=== PATIENT | male | born 1985 | race American Indian/Alaskan Native ===

== ENCOUNTER 2017-01-21 15:01 | Emergency (ER) | payer SELFPAY ==
[2017-01-21] MEDS ORDERED: BOOSTRIX IM ONE (20:44)
[2017-01-21] MEDS ORDERED: TORADOL IM ONE (20:44)
[2017-01-21] MEDS ORDERED: TORADOL ONE (20:51)
[2017-01-21] MEDS ORDERED: TRIPLE ANTIBIOTIC TP ONE (21:01)
--- NOTE | 2017-01-21 21:04 | Emergency Department Report ---
- General Chief Complaint: Laceration/Recheck/Suture Stated Complaint: DOG BITE Source: patient Mode of arrival: Ambulatory Limitations: No Limitations - History of Present Illness Initial Comments: 31 y/o M presents s/p 5 puncture wounds from two dogs-of his right hand that occurred about 6 hours ago. Pt states that the dog's were his dogs and they were fighting with one another and he came in between to stop them and the dogs bit him on his right hand. Pt states that his dog's are uptodate on all vaccines and states that he is uptodate with his vaccines as well. Pt is unsure when his last tetanus shot was. Pt states that he has 10/10 in severity pain at this time, he has not taken anything for the pain at this time. Pt states that the pain increases with movement. pt denies any fever, chills, pus, oozing , or drainage at the site. No numbness or tingling. No headache, chest pain, or SOB. NKDA. -: hour(s) (6) Location: other (right hand) Extremity Location: Right: Hand Place: home Patient Tetanus UTD: No (pt is unsure) Context: accidental Associated Symptoms: pain. denies: loss of feeling/numbness, suspect foreign body present, unable to move injured part, weakness followed by dizziness, nausea/vomiting, fever Treatments Prior to Arrival: other (nothing has been tried) - Related Data Previous Rx's Medication Instructions Recorded Last Taken Type Ibuprofen [Motrin] 800 mg PO TID PRN #20 tablet 02/09/13 Unknown Rx Methocarbamol [Robaxin] 750 mg PO BID #20 tab 02/14/13 Unknown Rx Acetaminophen/Codeine [Tylenol 1 tab PO Q6H PRN #20 tab 01/21/17 Unknown Rx /Codeine # 3 tab] Amoxicillin/K Clav Tab [Augmentin 1 tab PO Q12HR #20 tab 01/21/17 Unknown Rx 875 mg] Mupirocin [Bactroban 2% OINT] 1 applic TP TID #1 tube 01/21/17 Unknown Rx Allergies Allergy/AdvReac Type Severity Reaction Status Date / Time No Known Allergies Allergy Verified 01/21/17 15:39 ED Review of Systems ROS: Stated complaint: DOG BITE Other details as noted in HPI Constitutional: denies: chills, fever Eyes: as per HPI ENT: denies: ear pain, throat pain Respiratory: denies: cough, shortness of breath, wheezing Cardiovascular: denies: chest pain, palpitations Endocrine: no symptoms reported Gastrointestinal: denies: abdominal pain, nausea, diarrhea Genitourinary: denies: urgency, dysuria Musculoskeletal: other (reports to right hand pain, swelling, and mild bleeding at the site, no numbness or tingling) Skin: other (reports to puncture wounds/laceration ) Neurological: denies: headache, weakness, paresthesias Psychiatric: denies: anxiety, depression ED Past Medical Hx - Past Medical History Previous Medical History?: No - Surgical History Past Surgical History?: No - Social History Smoking Status: Former Smoker Substance Use Type: None - Medications Home Medications: Home Medications Medication Instructions Recorded Confirmed Last Taken Type Ibuprofen [Motrin] 800 mg PO TID PRN #20 tablet 02/09/13 Unknown Rx Methocarbamol [Robaxin] 750 mg PO BID #20 tab 02/14/13 Unknown Rx Acetaminophen/Codeine [Tylenol 1 tab PO Q6H PRN #20 tab 01/21/17 Unknown Rx /Codeine # 3 tab] Amoxicillin/K Clav Tab [Augmentin 1 tab PO Q12HR #20 tab 01/21/17 Unknown Rx 875 mg] Mupirocin [Bactroban 2% OINT] 1 applic TP TID #1 tube 01/21/17 Unknown Rx ED Physical Exam - General Limitations: No Limitations General appearance: alert, in no apparent distress - Head Head exam: Present: atraumatic, normocephalic - Eye Eye exam: Present: normal appearance - ENT ENT exam: Present: mucous membranes moist - Neck Neck exam: Present: normal inspection - Respiratory Respiratory exam: Present: normal lung sounds bilaterally. Absent: respiratory distress - Cardiovascular Cardiovascular Exam: Present: regular rate, normal rhythm. Absent: systolic murmur, diastolic murmur, rubs, gallop - Extremities Exam Extremities exam: Present: other (there were five puncture wounds noted on the right hand, one about 0.5 in noted on the pointer finger, there are two smaller superficial puncutres noted on the 2nd digit, none on the ring finger, and then 2 more on the pinky -fifth digit--- no foreign bodies were visualized. pt is able to move all digits, opposition is normal, strength is normal, pulses are normal, sensation is intact, no signs of neurovascualr compromise) - Expanded Upper Extremity Exam Right General: Present: laceration, abrasion Shoulder Exam: Present: normal inspection, full ROM Upper Arm exam: Present: normal inspection, full ROM Elbow exam: Present: normal inspection, full ROM Forearm Wrist exam: Present: normal inspection, full ROM Hand Wrist exam: Present: full ROM, tenderness (noted at the sites of the puncture wounds), swelling, laceration (2 puncutre wounds noted), other (there is no evidence of tendon injury or rupture). Absent: deformity, erythema Hand L/R Front: 1 - Positive: laceration, abrasion. Negative: normal inspection, nail injury ( #), foreign body, amputation, avulsion 2 - Positive: laceration (superficial), abrasion. Negative: other, normal inspection, nail injury (#), foreign body, amputation, avulsion 3 - Positive: laceration, abrasion. Negative: other, normal inspection, nail injury (#), foreign body, amputation, avulsion 4 - Positive: laceration, abrasion. Negative: other, normal inspection, nail injury (#), foreign body, amputation, avulsion 5 - Positive: laceration, abrasion. Negative: other, normal inspection, nail injury (#), foreign body, amputation, avulsion Neuro motor exam: Present: wrist extension intact, thumb opposition intact, thumb IP flexion intact, thumb adduction intact, fingers 2-5 abduction intact Vascular: Present: normal capillary refill - Neurological Exam Neurological exam: Present: alert, oriented X3, CN II-XII intact, normal gait - Psychiatric Psychiatric exam: Present: normal affect, normal mood - Skin Skin exam: Present: other (there were 5 puncture wounds noted on the R hand) ED Course Vital Signs 01/21/17 01/21/17 01/21/17 15:40 21:00 22:26 Temperature 98.4 F Pulse Rate 95 H 64 Respiratory 18 18 18 Rate Blood Pressure 109/63 Blood Pressure 110/76 [Left] O2 Sat by Pulse 96 99 Oximetry ED Medical Decision Making - Radiology Data Radiology results: image reviewed XR: Right hand- soft tissue swelling is seen without evidence of a radiopaque foreign body. no fracture or dislocation is seen. - Medical Decision Making Pt was unsure when his last tetanus shot was updated, therefore, I have updated it here today. Pt was given Toradol 30 mg for the pain at this time in the ED. I have conducted a hand xray to rule out foreign body, which was unremarkable. Pt states that both him and his dogs were uptodate with all vaccines. Area was cleaned with copious water and mild soap here in the ED, neosporin cream was applied, and the area was wrapped with sterile gauze. Pt will be discharged from the ED is tylenol with codeine, augmentin, and mupirocin cream. Pt was discharged in stable condition with no signs of resp distress, no SOB, and is alert and oriented. No toxic apperance.Hemodynamically and neurovascualrly intact. Referrals for PCP provided. Please note: I have not sutured the area as the infection rate increases with closing up an animal bite. Critical care attestation.: If time is entered above; I have spent that time in minutes in the direct care of this critically ill patient, excluding procedure time. ED Disposition Clinical Impression: Puncture wound Dog bite Qualifiers: Encounter type: initial encounter Qualified Code(s): W54.0XXA - Bitten by dog, initial encounter Disposition: DC-01 TO HOME OR SELFCARE Is pt being admited?: No Does the pt Need Aspirin: No Condition: Stable Instructions: Animal Bite (ED), Puncture Wound (ED) Additional Instructions: Please complete your full course of antibiotic as directed to you today. Please do not take the tylenol with codeine while drivign or operating heavy machinery as it can make you drowsy. Please follow-up with PCP within 3-5 days. Please return to the ED immediately with any acute worsening of symptoms: such as fever , pus, redness, swelling, or increased pain. Prescriptions: Acetaminophen/Codeine [Tylenol /Codeine # 3 tab] 1 tab PO Q6H PRN #20 tab PRN Reason: pain Amoxicillin/K Clav Tab [Augmentin 875 mg] 1 tab PO Q12HR #20 tab Mupirocin [Bactroban 2% OINT] 1 applic TP TID #1 tube Referrals: PRIMARY CARE, [Primary Care Provider] - 3-5 Days [facility] [Outside] - 3-5 Days [facility] [Outside] - 3-5 Days Forms: Work/School Release Form(ED)
--- NOTE | 2017-01-21 22:02 | XRay Report ---
FINAL REPORT PROCEDURE: XR HAND 3+V RT TECHNIQUE: Three views of the right hand are obtained HISTORY: foreign body RIGHT HAND PAIN COMPARISON: No prior studies are available for comparison. FINDINGS: Soft tissue swelling is seen without evidence of a radiopaque foreign body. No fracture or dislocation is seen. IMPRESSION: No radiopaque foreign body is seen.
[2017-01-21 22:27] VITALS: BP 110/76
== END 2017-01-21 22:27 | disposition home or self-care (01) ==
LOC: ED 15:01
DX: S61.431A Puncture wound without foreign body of right hand, initial encounter (principal); Z87.891 Personal history of nicotine dependence; W54.0XXA Bitten by dog, initial encounter; Y93.89 Activity, other specified; Y92.89 Other specified places as the place of occurrence of the external cause; Y99.8 Other external cause status
CPT/HCPCS: 73130; 90471; 90715; 96372; 99283; J1885; A6250

== ENCOUNTER 2017-01-26 16:11 | Emergency (ER) | payer SELFPAY ==
[2017-01-26 16:56] LABS: Eosinophils % (Auto) 1.6 % (0.0-4.3); Hematocrit 45.7 % (35.5-45.6); Hemoglobin 15.5 gm/dl (11.8-15.2); Mean Corpuscular HGB Conc 34 % (32-34); Mean Corpuscular Hemoglobin 30 pg (28-32); Mean Corpuscular Volume 89 fl (84-94); Platelet Count 214 K/mm3 (140-440); Red Blood Count 5.17 M/mm3 (3.65-5.03); White Blood Count 5.1 K/mm3 (4.5-11.0)
[2017-01-26 17:01] LABS: Anion Gap 19 mmol/L; BUN/Creatinine Ratio 10; Blood Urea Nitrogen 8 mg/dL (9-20); Calcium 9.2 mg/dL (8.4-10.2); Carbon Dioxide 26 mmol/L (22-30); Chloride 100.9 mmol/L (98-107); Glucose 97 mg/dL (75-100); Potassium 4.6 mmol/L (3.6-5.0); Sodium 141 mmol/L (137-145)
[2017-01-26 17:02] LABS: Basophils % (Auto) 0.7 % (0.0-1.8)
--- NOTE | 2017-01-26 20:14 | Emergency Department Report ---
ED Recheck HPI - General Chief Complaint: Animal Bite Stated Complaint: NEEDS STITCHES Time Seen by Provider: 01/26/17 19:21 Source: patient Mode of arrival: Ambulatory Limitations: No Limitations - History of Present Illness Initial Comments: 31-year-old male past medical history none presents for wound check status post dog bite to right hand approximately 5 days ago. Patient states that his own dog bit his right hand it was a pitbull and he received treatment in the ER approximately 5 days ago presents for wound check right hand. Denies nausea vomiting fever or chills denies any significant pus drainage from hand. States he is currently on a course of Augmentin was given tetanus and knows that his dogs been fully vaccinated against rabies. Has pedigree information for his animals. MD Complaint: wound re-check Onset/Timin -: days(s) Initial Visit For: laceration, animal bite Returns Today for: wound recheck Context: planned re-check Associated Symptoms: none - Related Data Previous Rx's Medication Instructions Recorded Last Taken Type Ibuprofen [Motrin] 800 mg PO TID PRN #20 tablet 02/09/13 Unknown Rx Methocarbamol [Robaxin] 750 mg PO BID #20 tab 02/14/13 Unknown Rx Acetaminophen/Codeine [Tylenol 1 tab PO Q6H PRN #20 tab 01/21/17 Unknown Rx /Codeine # 3 tab] Amoxicillin/K Clav Tab [Augmentin 1 tab PO Q12HR #20 tab 01/21/17 Unknown Rx 875 mg] Mupirocin [Bactroban 2% OINT] 1 applic TP TID #1 tube 01/21/17 Unknown Rx Allergies Allergy/AdvReac Type Severity Reaction Status Date / Time No Known Allergies Allergy Verified 01/21/17 15:39 ED Review of Systems ROS: Stated complaint: NEEDS STITCHES Other details as noted in HPI Constitutional: denies: chills, fever Eyes: denies: eye pain, eye discharge, vision change ENT: denies: ear pain, throat pain Respiratory: denies: cough, shortness of breath, wheezing Cardiovascular: denies: chest pain, palpitations Endocrine: no symptoms reported Gastrointestinal: denies: abdominal pain, nausea, diarrhea Genitourinary: denies: urgency, dysuria Musculoskeletal: denies: back pain, joint swelling, arthralgia Skin: denies: rash, lesions Neurological: denies: headache, weakness, paresthesias Psychiatric: denies: anxiety, depression Hematological/Lymphatic: denies: easy bleeding, easy bruising ED Past Medical Hx - Past Medical History Previous Medical History?: No - Surgical History Past Surgical History?: No - Social History Smoking Status: Current Some Day Smoker Substance Use Type: Alcohol - Medications Home Medications: Home Medications Medication Instructions Recorded Confirmed Last Taken Type Ibuprofen [Motrin] 800 mg PO TID PRN #20 tablet 02/09/13 Unknown Rx Methocarbamol [Robaxin] 750 mg PO BID #20 tab 02/14/13 Unknown Rx Acetaminophen/Codeine [Tylenol 1 tab PO Q6H PRN #20 tab 01/21/17 Unknown Rx /Codeine # 3 tab] Amoxicillin/K Clav Tab [Augmentin 1 tab PO Q12HR #20 tab 01/21/17 Unknown Rx 875 mg] Mupirocin [Bactroban 2% OINT] 1 applic TP TID #1 tube 01/21/17 Unknown Rx ED Physical Exam - General Limitations: No Limitations General appearance: alert, in no apparent distress - Head Head exam: Present: atraumatic, normocephalic - Eye Eye exam: Present: normal appearance, PERRL, EOMI - ENT ENT exam: Present: mucous membranes moist - Neck Neck exam: Present: normal inspection - Respiratory Respiratory exam: Present: normal lung sounds bilaterally. Absent: respiratory distress - Cardiovascular Cardiovascular Exam: Present: regular rate, normal rhythm. Absent: systolic murmur, diastolic murmur, rubs, gallop - GI/Abdominal GI/Abdominal exam: Present: soft, normal bowel sounds - Rectal Rectal exam: Present: deferred - Extremities Exam Extremities exam: Present: normal inspection - Expanded Upper Extremity Exam Right Hand Wrist exam: Present: abrasion (multiple abrasions to distal right hand, largest of which is at distal right index fingertip. No erythema no pus drainage no foul odor) Hand L/R Front: 1 - Positive: abrasion 2 - Positive: abrasion 3 - Positive: abrasion Neuro motor exam: Present: wrist extension intact, thumb opposition intact, thumb IP flexion intact, thumb adduction intact, fingers 2-5 abduction intact Vascular: Present: normal capillary refill (distal capillary refill fully intact all fingers) - Back Exam Back exam: Present: normal inspection - Neurological Exam Neurological exam: Present: alert, oriented X3 - Psychiatric Psychiatric exam: Present: normal affect, normal mood - Skin Skin exam: Present: warm, dry, intact, normal color. Absent: rash ED Course Vital Signs 01/26/17 01/26/17 16:52 16:59 Temperature 99.2 F Pulse Rate 74 Respiratory 18 Rate Blood Pressure 94/63 [Right] ED Recheck MDM - Differential Diagnosis Wound Recheck - Medical Decision Making A/P: Wound check secondary to animal bite 1-on physical exam there are no signs of infection or erythema no drainage no foul odor 2-patient instructed on acute wound care 3-patient has received tetanus does not require rabies vaccinations as his dogs have had their vaccinations against rabies 4- wounds appear to be healing well. I advised patient to continue to use Bactroban ointment and applied Band-Aids to areas. 5-primary care follow-up Critical care attestation.: If time is entered above; I have spent that time in minutes in the direct care of this critically ill patient, excluding procedure time. ED Disposition Clinical Impression: Visit for wound check Dog bite Qualifiers: Encounter type: sequela Qualified Code(s): W54.0XXS - Bitten by dog, sequela Disposition: -01 TO HOME OR SELFCARE Is pt being admited?: No Does the pt Need Aspirin: No Condition: Stable Instructions: Animal Bite (ED), Acute Wound Care (ED) Referrals: [facility] [Outside] - 3-5 Days [facility] [Outside] - 3-5 Days Forms: Work/School Release Form(ED) Time of Disposition: 20:14
[2017-01-26 20:20] VITALS: BP 136/78
== END 2017-01-26 20:19 | disposition home or self-care (01) ==
LOC: ED 16:11
DX: Z48.01 Encounter for change or removal of surgical wound dressing (principal); F17.210 Nicotine dependence, cigarettes, uncomplicated
CPT/HCPCS: 36415; 80048; 85025; 99283

== ENCOUNTER 2017-07-05 19:03 | Emergency (ER) | payer OTHER ==
[2017-07-05 19:52] VITALS: BP 116/64
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
== END 2017-07-06 00:40 | disposition home or self-care (01) ==
LOC: ED 19:03
DX: S16.1XXA Strain of muscle, fascia and tendon at neck level, initial encounter (principal); S39.012A Strain of muscle, fascia and tendon of lower back, initial encounter; F17.200 Nicotine dependence, unspecified, uncomplicated; V89.2XXA Person injured in unspecified motor-vehicle accident, traffic, initial encounter; Y93.89 Activity, other specified; Y92.89 Other specified places as the place of occurrence of the external cause; Y99.8 Other external cause status
CPT/HCPCS: 70450; 99283

== ENCOUNTER 2018-01-08 04:41 | Emergency (ER) | payer OTHER ==
[2018-01-08 06:20] VITALS: BP 103/67
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
[2018-01-08] MEDS ORDERED: MOTRIN PO ONE (09:54)
[2018-01-08] MEDS ORDERED: NORCO 5/325 PO ONE (09:54)
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
== END 2018-01-08 10:20 | disposition home or self-care (01) ==
LOC: ED 04:41
DX: S69.91XA Unspecified injury of right wrist, hand and finger(s), initial encounter (principal); S60.221A Contusion of right hand, initial encounter; F17.200 Nicotine dependence, unspecified, uncomplicated; Y04.2XXA Assault by strike against or bumped into by another person, initial encounter; Y93.89 Activity, other specified; Y99.8 Other external cause status; Y92.89 Other specified places as the place of occurrence of the external cause